=== PATIENT | female | born 1955 | race African-American/Black ===

== ENCOUNTER 2020-09-22 13:48 | Emergency (ER) | payer BC | END 2020-09-22 14:22 | disposition home or self-care (01) | LOC: MADERS 13:48 | DX: R05 Cough (principal); I25.10 Atherosclerotic heart disease of native coronary artery without angina pectoris; E11.9 Type 2 diabetes mellitus without complications; E78.5 Hyperlipidemia, unspecified; I10 Essential (primary) hypertension; I25.2 Old myocardial infarction; E78.00 Pure hypercholesterolemia, unspecified | CPT/HCPCS: 99283 ==

== ENCOUNTER 2020-09-25 12:03 | Emergency (ER) | payer BC | END 2020-09-25 14:13 | disposition home or self-care (01) | LOC: MADERS 12:03 | DX: R05 Cough (principal); R13.10 Dysphagia, unspecified; E11.9 Type 2 diabetes mellitus without complications; I25.10 Atherosclerotic heart disease of native coronary artery without angina pectoris; E78.5 Hyperlipidemia, unspecified; I10 Essential (primary) hypertension; I25.2 Old myocardial infarction | CPT/HCPCS: 71046 ==